=== PATIENT | female | born 1990 | race Caucasian/White ===

== ENCOUNTER → 2017-01-30 | Outpatient (CLI) | payer OTHER ==
[~2017-01-30] MED LIST: CRAN1CAP15 PO; PRENTAB26 PO; ZINC1CAP PO
== END | disposition home or self-care (01) ==
LOC: C.LABSPEC 17:26
PROVIDERS: ATTEND Physician Assistant
DX: N94.10 Unspecified dyspareunia (principal)

== ENCOUNTER → 2017-05-30 | Outpatient (CLI) | payer OTHER ==
[2017-05-30 16:22] LABS: URINE APPEARANCE CLEAR (CLEAR); URINE BILIRUBIN NEG (NEG); URINE COLOR YELLOW; URINE NITRITE NEG (NEG); URINE PH 6.5 (4.5-7.5); URINE SPECIFIC GRAVITY 1.017 (1.000-1.030); UROBILINOGEN NEG (NEG)
[2017-05-30 16:24] LABS: MANUAL MICROSCOPIC REQUIRED? NO; REVIEW REQ? NO
== END | disposition home or self-care (01) ==
LOC: C.LABSPEC 15:58
PROVIDERS: ATTEND Obstetrics & Gynecology
DX: Z34.91 Encounter for supervision of normal pregnancy, unspecified, first trimester (principal)

== ENCOUNTER → 2017-06-03 | Outpatient (CLI) | payer OTHER ==
[2017-06-03 16:34] LABS: BASO % 0.3 %; BASO ABS # 0.03 K/uL (0-0.2); COMPLETE YES; EOS % 0.9 %; HEMATOCRIT 37.2 % (37-47); IG% 0.3 %; LYMPH ABS # 2.09 K/uL (1.2-3.4); MEAN CELL VOLUME 86.3 fL (80-100); MEAN CORPUSCULAR HEMOGLOBIN 28.3 pg (25-34); MEAN CORPUSCULAR HGB CONC 32.8 g/dl (32-36); MEAN PLATELET VOLUME 10.1 fL (7.4-10.4); MONO % 5.3 %; NEUT % 74.2 %; PLATELET COUNT 308 K/uL (130-400); RED BLOOD COUNT 4.31 M/uL (4.2-5.4); WHITE BLOOD COUNT 11.02 K/uL (4.8-10.8)
[2017-06-05 15:19] LABS: CHLAMYDIA TRACH RNA*** NOT DETECTED (NOT DETECTED); GC (NEIS GONORRHOEAE)RNA** NOT DETECTED (NOT DETECTED)
== END | disposition home or self-care (01) ==
LOC: C.LAB1850 15:05
PROVIDERS: ATTEND Obstetrics & Gynecology
DX: Z34.91 Encounter for supervision of normal pregnancy, unspecified, first trimester (principal)

== ENCOUNTER → 2017-06-03 | Outpatient (CLI) | payer OTHER | END | disposition home or self-care (01) | LOC: C.PAPS 09:59 | PROVIDERS: ATTEND Obstetrics & Gynecology | DX: Z12.4 Encounter for screening for malignant neoplasm of cervix (principal) ==

== ENCOUNTER → 2017-07-22 | Outpatient (CLI) | payer OTHER ==
[2017-07-22 18:00] LABS: GTGD 50 Grams
== END | disposition home or self-care (01) ==
LOC: C.LAB1850 14:36
PROVIDERS: ATTEND Obstetrics & Gynecology
DX: Z34.92 Encounter for supervision of normal pregnancy, unspecified, second trimester (principal)

== ENCOUNTER → 2017-10-23 | Outpatient (CLI) | payer OTHER ==
[2017-10-23 15:34] LABS: HEMATOCRIT 34.2 % (37-47); HEMOGLOBIN 11.7 g/dL (12.0-16.0)
== END | disposition home or self-care (01) ==
LOC: C.LAB1850 14:26
PROVIDERS: ATTEND Obstetrics & Gynecology
DX: Z34.93 Encounter for supervision of normal pregnancy, unspecified, third trimester (principal)

== ENCOUNTER → 2017-12-11 | Outpatient (CLI) | payer OTHER | END | disposition home or self-care (01) | LOC: C.LABSPEC 15:51 | PROVIDERS: ATTEND Obstetrics & Gynecology | DX: Z34.83 Encounter for supervision of other normal pregnancy, third trimester (principal) ==

== ENCOUNTER 2022-01-12 21:35 | Inpatient (IN) ==
[2022-01-13] MEDS ORDERED: OXYTOCIN 30 UNITS/500 ML BAG IV PRN ×3 (01:39→09:41)
[2022-01-13] MEDS ORDERED: fentaNYL citrate 100 MCG/2 ML VIAL ONE (01:41)
[2022-01-13] MEDS ORDERED: ePHEDrine sulfate 50 MG/ML AMP ONE (01:41)
[2022-01-13] MEDS ORDERED: BUPIVACAINE 0.25% 30 ML VIAL ONE (01:41)
[2022-01-13] MEDS ORDERED: SODIUM CHLORIDE 0.9% INJ 10 ML VIAL ONE (01:41)
[2022-01-13] MEDS ORDERED: fentaNYL 2MCG/ML ROPIVACAINE 1.25MG/ML 100 ML BAG EPI ONE (01:42)
[2022-01-13] MEDS: LACTATED RINGER'S 1,000 ML IV PRN ×2 (01:45→02:37)
[2022-01-13 02:04] LABS: Hematocrit (blood only) 33.7 % (37-47); Hemoglobin 11.2 g/dL (12.0-16.0); Mean Corpuscular Hemoglobin 28.6 pg (25-34); Mean Corpuscular Hgb Conc 33.2 g/dL (32-36); Mean Platelet Volume 9.3 fL (7.4-10.4); Platelet Count 230 K/uL (130-400); RDW Coefficient of Variation 13.4 % (11.5-14.5); RDW Standard Deviation 42.2 fL (36.4-46.3); Red Blood Count 3.92 M/uL (4.2-5.4); White Blood Count 8.85 K/uL (4.8-10.8)
[2022-01-13] MEDS ORDERED: PROMETHAZINE HCL 6.25 MG in SODIUM CHLORIDE 0.9% 50 ML IV PRN (02:50)
[2022-01-13] MEDS ORDERED: fentaNYL 2MCG/ML ROPIVACAINE 1.25MG/ML 100 ML BAG EPI PRN (02:50)
[2022-01-13] MEDS ORDERED: diphenhydrAMINE 50 MG/ML VIAL IV PRN (02:50)
[2022-01-13] MEDS ORDERED: ePHEDrine sulfate 50 MG/ML AMP IV PRN (02:50)
[2022-01-13] MEDS ORDERED: NALOXONE HCL 0.4 MG/1 ML VIAL/CARP IV PRN (02:50)
[2022-01-13] MEDS ORDERED: NALOXONE HCL 1 MG in SODIUM CHLORIDE 0.9% 1000ML 1,000 ML IV PRN (02:50)
[2022-01-13] MEDS ORDERED: ONDANSETRON INJ 2 MG/ML 2 ML VIAL IV PRN (02:50)
[2022-01-13] MEDS ORDERED: NALBUPHINE HCL INJ 10 MG/ML AMP IV PRN (02:50)
--- NOTE | 2022-01-13 02:50 | Anesthesiology Consultation ---
Date of Service January 13, 2022 Assessment & Plan Chart Review Chart Review: Acceptable Risk for Surgery and Patient NOT seen in Pre Admission Testing Consults Requested none ASA ASA2 Proposed Anesthesia Anesthesia Type: Labor Epidural Risk / Benefits Reviewed With: PT / POA / Parent / Guardian, Accepts Plan and Informed Consent Obtained History Height/Weight Height: 5 ft 8 in Weight: 94.347 kg Allergies Allergy/AdvReac Type Severity Reaction Status Date / Time No Known Drug Allergies Allergy Mild None Verified 01/12/22 21:57 Medications Home Medications Medication Instructions Recorded Confirmed Last Taken cranberry extract 2 tab PO DAILY 05/26/19 01/12/22 01/11/22 zinc gluconate 50 mg tablet 50 mg PO DAILY tab 05/26/19 01/12/22 01/11/22 prenat.vits,josefina,vdt-vmgo-pvuje 1 tab PO DAILY 06/01/21 01/12/22 01/11/22 Vitamin D3 1 tab PO DAILY 08/16/21 01/12/22 01/12/22 magnesium 1 tab PO DAILY 08/16/21 01/12/22 01/12/22 ferrous sulfate 325 mg (65 mg 325 mg PO DAILY 11/20/21 01/12/22 01/11/22 iron) tablet Active Medications Generic Name Dose Route Start Last Admin Trade Name Freq PRN Reason Stop Dose Admin Lactated Ringer's 1,000 mls @ 125 mls/hr 01/13/22 01:39 01/13/22 02:37 Lr IV 01/15/22 01:38 125 mls/hr .Q8H PRN Administration L&D Protocol Protocol Past Medical History Medical History Fracture phalanges, hand Varicella Exercise / Class Metabolic Activity II 4-5 Yardwork/Stairs/Walk up hill Past Family History Family History Mother Asthma Grandmother (Paternal) Breast cancer Diabetes Grandfather (Maternal) Myocardial infarction Denies family history of Ovarian cancer Prostate cancer Colorectal cancer Past Surgical History Surgical History History of surgery Past Anesthesia History No Hx of Anesthesia Complications and No Family Hx of Anesthesia Complications History of PONV No Hx of PONV and No Hx of Motion Sickness Social History Smoking Status: Never smoker Hx Alcohol Use: Yes Alcohol type: wine Hx Substance Use: No substance use type: does not use Physical Exam Vital Signs Last Vital Signs Temp 36.8 C 01/13/22 01:55 Pulse 73 01/13/22 02:49 Resp 16 01/13/22 02:40 BP 88/52 L 01/13/22 02:49 Pulse Ox 98 01/13/22 02:45 ENMT Mouth: no dentition abnormality Thyromental Distance: > or= 3.5 Finger Breadths Mallampati Class: II Neck normal visual inspection Respiratory normal respiratory effort Auscultation: lungs clear to auscultation bilaterally Cardiovascular Rate/Rhythm: regular rate and regular rhythm Psychiatric Orientation: alert Testing Laboratory Results 01/13/22 01:48
--- NOTE | 2022-01-13 04:46 | History & Physical Report ---
Date of Service January 13, 2022 Assessment & Plan (1) Active labor at term: Plan: pt has been admitted. iv, labs reviewed. will need to begin pitocin since ctx have spaced, pt aware and agreeable. suspect srom earlier as with attempt at arom, could not palpate membranes and no obvious result. fhts categ 1. Admission and Anticipated Discharge Date Admission Date: January 13, 2022 History of Present Illness Chief Complaint: regular ctx Primary Care Provider: Bart Levy MD 31yo at 40wks ega presents to LD with above cc. She notes ctx were regular q2-3min and came to L&D for evaluation. She was only 1cm on arrival but then over 4hr waiting changed to 4cm and was admitted as she noted painful ctx. PNC uncomplicated. PNL rh pos, ri, GBS neg OBH: x 2 GYNH: nl paps. Allergies Allergy/AdvReac Type Severity Reaction Status Date / Time No Known Drug Allergies Allergy Mild None Verified 01/12/22 21:57 Home Medications Medication Instructions Recorded Confirmed Type cranberry extract 2 tab PO DAILY 05/26/19 01/12/22 History zinc gluconate 50 mg tablet 50 mg PO DAILY tab 05/26/19 01/12/22 History prenat.vits,josefina,wkj-qmls-lkwft 1 tab PO DAILY 06/01/21 01/12/22 History Vitamin D3 1 tab PO DAILY 08/16/21 01/12/22 History magnesium 1 tab PO DAILY 08/16/21 01/12/22 History ferrous sulfate 325 mg (65 mg 325 mg PO DAILY 11/20/21 01/12/22 History iron) tablet Patient History Medical History Fracture phalanges, hand Varicella Surgical History History of surgery Family History Mother Asthma Grandmother (Paternal) Breast cancer Diabetes Grandfather (Maternal) Myocardial infarction Denies family history of Ovarian cancer Prostate cancer Colorectal cancer Social History Smoking Status: Never smoker Second Hand Exposure: No; Hx Alcohol Use: Yes Alcohol type: wine Hx Substance Use: No Preferred Language: R[place] Visual Impairment: No Limitations Hearing Ability: Normal Scientific Affairs Manager Required: No Beliefs That Will Affect Care: None marital status: marital status details: Yunier Cordoba (30) [phone] Current Living Situation: Spouse Current Living Situation Comment: lives with spouse, 2 children, cats-spouse changing litter current occupational status: employed current occupation: daycare Other Information That Helps Us Care for You: No Feels Safe at Home: Yes Safety Concerns: Feels Safe At This Time Dental Care, Regularly: Yes Physical Activity Frequency: 3-4 Times per Week Assistive Devices: Contacts and Glasses Review of Systems as per Subjective / HPI Physical Exam Constitutional: WD/WN, vitals as above Respiratory: normal respiratory effort, lungs clear to auscultation Cardiovascular: Rate/Rhythm: regular rate and regular rhythm Gastrointestinal (Abdomen): soft gravid nt efw 7-8# Musculoskeletal: no edema nontender calves Neurologic: grossly normal Psychiatric: A+Ox3, euthymic affect Genitourinary: Manual OB Exam: + cervical dilation 5 cm, + cervical effacement 80% and + station -2 OB Exam Monitor Tracing: + external FHT monitor used, + external uterine monitor used (q6), + category I and + normal FHT variability Results & Data ([facility]) Vital Signs (Past 12 Hours) Vital Signs Temp Pulse Resp BP Pulse Ox 01/13/22 04:40 75 98 01/13/22 04:38 78 104/68 01/13/22 04:35 78 99 01/13/22 04:34 71 116/72 01/13/22 04:30 74 99 01/13/22 04:27 81 92/51 L 01/13/22 04:25 79 97 01/13/22 04:23 71 99/57 L 01/13/22 04:20 76 97 01/13/22 04:17 75 92/50 L 01/13/22 04:15 74 98 01/13/22 04:12 70 87/48 L 01/13/22 04:10 67 98 01/13/22 04:09 67 98/54 L 01/13/22 04:05 79 97 01/13/22 04:03 64 96/52 L 01/13/22 04:00 80 97 01/13/22 03:58 77 90/52 L 01/13/22 03:55 76 98 01/13/22 03:52 77 89/50 L 01/13/22 03:50 81 97 01/13/22 03:49 69 93/52 L 01/13/22 03:45 80 97 01/13/22 03:43 64 97/52 L 01/13/22 03:40 83 97 01/13/22 03:37 76 93/55 L 01/13/22 03:35 70 98 01/13/22 03:32 77 92/54 L 01/13/22 03:30 74 98 01/13/22 03:27 80 92/55 L 01/13/22 03:25 82 99 01/13/22 03:23 71 100/55 L 01/13/22 03:20 69 99 01/13/22 03:19 75 89/50 L 01/13/22 03:15 69 99 01/13/22 03:12 76 95/53 L 01/13/22 03:10 82 18 99 01/13/22 03:07 68 98/57 L 01/13/22 03:05 74 98 01/13/22 03:02 75 95/53 L 01/13/22 03:00 68 99 01/13/22 02:57 79 92/52 L 01/13/22 02:55 69 16 94/53 L 99 01/13/22 02:53 74 87/53 L 01/13/22 02:51 75 86/54 L 01/13/22 02:50 76 18 98 01/13/22 02:49 73 88/52 L 01/13/22 02:47 73 87/50 L 01/13/22 02:45 72 92/51 L 98 01/13/22 02:43 76 89/50 L 01/13/22 02:41 69 97/54 L 01/13/22 02:40 68 16 98 01/13/22 02:35 69 99 01/13/22 02:30 74 100 01/13/22 02:25 69 99 01/13/22 02:20 77 97 01/13/22 02:15 72 98 01/13/22 02:10 72 97 01/13/22 02:05 69 97 01/13/22 02:00 62 100 01/13/22 01:55 98.2 F 68 112/68 98 05/28/22 21:45 98.4 F 18 01/12/22 21:44 71 115/68 Coding Level of Care Code None Diagnoses Active labor at term
[2022-01-13] MEDS ORDERED: oxyCODONE/ACETAMINOPHEN 5mg/325mg TAB PO PRN (09:41)
[2022-01-13] MEDS ORDERED: DIPHTHERIA/TETANUS/PERTUSSIS 0.5 ML SYR/VIAL IM ONE (09:41)
[2022-01-13] MEDS ORDERED: BENZOCAINE 20% AER SPR 82.5 GM CAN EXT PRN (09:41)
[2022-01-13] MEDS ORDERED: HYDROCORTISONE ACETATE 25 MG SUPP PR PRN (09:41)
[2022-01-13] MEDS ORDERED: ACETAMINOPHEN 325 MG TAB PO PRN (09:41)
--- NOTE | 2022-01-13 09:43 | Delivery Summary ---
Vaginal Delivery Summary Date of Service January 13, 2022 Vaginal Delivery Summary and 3rd Degree LAC Pre-operative Diagnosis: at 40 1/7 labor Post-operative Diagnosis: same third degree laceration Procedure: epidural pitocin augmentation third degree laceration and repair EBL: 400cc Anesthesia: epidural Procedure: The patient presented to labor and delivery with early active labor. She progressed needing a small amount of pitocin to c/c/+2. The patient pushed for one contraction to deliver a viable female in buzz position. The rest of the infant was then delivered without difficulty. There was no nuchal cord. The baby was vigorous. The nose and mouth were bulb suctioned and the was placed in the maternal abdomen for drying and attention. Cord was clamped and cut at one minute of life. Cord blood and segment obtained. Placenta delivered spontaneous, intact with a three vessel cord. Cervix/sulci/rectum were intact. A third degree perineal laceration was repaired in the normal standard fashion--4 stitches of 2-0 vicryl in the sphincter, several deep 2-0 sutures to close the vaginal space. Hemostasis obtained with dilute pitocin and fundal massage. Apgars were 8/9. Mother and baby doing well at the end of the delivery. [facility] Vaginal Delivery Charge Delivery Type Details: and 3rd Degree LAC
[2022-01-13] MEDS ORDERED: ceFAZolin 1000MG 1,000 MG/7.5 ML SYR IV ONE (09:44)
--- NOTE | 2022-01-13 10:55 | Anesthesia Procedure Note ---
Date of Service January 13, 2022 Anesthesia Post Epidural Note Vital Signs Vital Signs: Temp Pulse Resp BP Pulse Ox 36.8 C 76 18 114/69 98 01/13/22 07:00 01/13/22 10:50 01/13/22 07:00 01/13/22 10:40 01/13/22 10:50 Pain Intensity Abdomen: Pain Intensity: 0 Notes Mental Status: alert / awake / arousable and participated in evaluation Nausea / Vomiting: adequately controlled Pain: adequately controlled Airway Patency, RR, SpO2: stable & adequate BP & HR: stable & adequate Hydration State: stable & adequate Neuraxial Anesthesia: was administered and sensory block is resolving Anesthetic Complications: no major complications apparent Epidural: Removed without complications and With tip intact
[2022-01-13] MEDS: IBUPROFEN 600 MG TAB PO PRN ×2 (11:59→16:12)
[2022-01-13] MEDS: DOCUSATE SODIUM 100 MG CAP PO SCH (20:13)
[2022-01-14] MEDS: IBUPROFEN 600 MG TAB PO PRN ×2 (00:27→07:33)
--- NOTE | 2022-01-14 06:12 | Obstetrical Progress Note ---
Date of Service <Brady Wright MD - Last Filed: 01/14/22 07:36> January 14, 2022 Assessment & Plan <Brady Wright MD - Last Filed: 01/14/22 07:36> (1) Vaginal delivery: 31 yo now PPD1 from at 40wk1 with 3rd degree perineal laceration, given Ancef. -Discharge home today -Vitals reviewed- HDS, afebrile -Blood type O+, GBS-, Rubella immune -Pain control with ibuprofen, acetaminophen PRN -Hgb 9.6, asymptomatc -F/u in 6 weeks with OB <Aysha Cedillo MD, FACOG - Last Filed: 01/14/22 07:50> (1) Vaginal delivery: Subjective <Brady Wright MD - Last Filed: 01/14/22 07:36> Ambulation: ambulating normally Voiding: no voiding problems Passing Gas:: Yes Diet Tolerance:: regular diet Lochia:: Small Feeding Type:: breast feeding Current Pain Level(1-10): 0 Pt doing well overall, no acute complaints or distress. Reports some soreness but states it is not painful. going well. Would like to go home today. Review of Systems Denies fever/chills. Denies dyspnea, cough. Denies chest pain. Denies breast pain or discharge. Denies dysuria. Denies headache. Denies back pain. Physical Exam <Brady Wright MD - Last Filed: 01/14/22 07:36> General: Alert, oriented, no acute distress Cardiac: Regular rate and rhythm, normal S1, S2. No murmurs appreciated. Respiratory: Clear to auscultation b/l with good air flow entry, symmetric chest rise and fall. No wheezes or crackles. No increased work of breathing or accessory muscle use Abdomen: Soft, nontender, nondistended. Fundus firm and palpable at 1.5 cm below umbilicus. No guarding or rebound. Skin: No rashes or lesions Extremities: Warm, dry, well-perfused with capillary refill <2s b/l. No lower extremity edema, erythema, swelling or calf tenderness b/l. Results & Data ([facility]) <Brady Wright MD - Last Filed: 01/14/22 07:36> Vital Signs (Past 12 Hours) Vital Signs Temp Pulse Resp BP Pulse Ox 01/14/22 04:24 36.5 C 54 L 18 101/60 98 01/14/22 00:35 36.4 C L 65 18 94/60 L 97 01/13/22 20:00 36.4 C L 71 18 97/62 L 98 <Aysha Cedillo MD, FACOG - Last Filed: 01/14/22 07:50> Co-Signing Physician Notes Resident Physician Supervision Note: I interviewed and examined the patient. Discussed with Dr. Wright and agree with findings and plan as documented in the note. Any exceptions or clarifications are listed here: Doing well. Sore bottom consistent with third degree. Discussed first BM. Call with any concerns of questions. Instructions given for d/c. Documented By: Aysha Cedillo MD, FACOG Resident Activity Tracking <Brady Wright MD - Last Filed: 01/14/22 07:36> Resident Involvement: Resident Care Provided Care Provided: OB Delivery
[2022-01-14 07:32] LABS: Hematocrit (blood only) 29.2 % (37-47); Hemoglobin 9.6 g/dL (12.0-16.0)
[2022-01-14] MEDS: DOCUSATE SODIUM 100 MG CAP PO SCH (07:33)
[2022-01-14] MEDS ORDERED: PRENATAL VITAMIN 1 TAB PO SCH (08:00)
[2022-01-14] MEDS ORDERED: bisacodyL 5 MG TABEC PO SCH (20:00)
== END 2022-01-14 11:15 | disposition home or self-care (01) | DRG 768 ==
LOC: OPB 21:35 → 4S1 21:41 → 4E2 01-13 12:44

== ENCOUNTER 2024-04-04 19:52 | Inpatient (IN) ==
[2024-04-04] MEDS ORDERED: OXYTOCIN 30 UNITS/NSS 30 UNITS/500 ML BAG IV PRN (20:36)
[2024-04-04] MEDS ORDERED: CALCIUM CARBONATE 500 MG CHEWABLE TAB PO PRN (20:36)
[2024-04-04] MEDS ORDERED: LIDOCAINE 1% LOCAL 20 ML VIAL INFIL PRN (20:36)
[2024-04-04] MEDS: LACTATED RINGER'S 1,000 ML IV PRN (20:37)
--- NOTE | 2024-04-04 20:44 | History & Physical Report ---
Date of Service April 04, 2024 Assessment & Plan (1) Normal labor: Plan admit, iv, labs, will see how arom helps labor pattern. epidural when desires. History of Present Illness Chief Complaint: contractions. Primary Care Provider: Bart Levy MD 33yo at 39+wks ega presents to LD with above cc. Patient noting ctx q2-3min. No rom. No vb. +FM. PNC uncomplicated. Prior LGA, last u/s efw 84% PNL rh pos, ri, gbs neg OBH: x 3 GYNH: nl paps no stds Allergies Allergy/AdvReac Type Severity Reaction Status Date / Time No Known Drug Allergies Allergy Mild None Verified 03/29/24 13:04 Home Medications Medication Instructions Recorded Confirmed Type prenat.vits,josefina,dix-vxqx-kihdg 1 tab PO DAILY 06/01/21 04/04/24 History magnesium 500 mg tablet 1 mg PO DAILY 04/04/24 04/04/24 History Patient History Medical History Fracture phalanges, hand Varicella Surgical History History of surgery Family History Mother Asthma Grandmother (Paternal) Breast cancer Diabetes Grandfather (Maternal) Myocardial infarction Denies family history of Ovarian cancer Prostate cancer Colorectal cancer Social History Smoking Status: Never smoker Second Hand Exposure: No; Do You Dip or Chew Tobacco: No; Hx Alcohol Use: No Hx Substance Use: No Preferred Language: Tanzanian Visual Impairment: No Limitations Hearing Ability: Normal Geography Instructor Required: No Beliefs That Will Affect Care: None marital status: marital status details: Yunier Cordoba (32) [phone] Current Living Situation: Family Current Living Situation Comment: lives with spouse, 3 children, cats-spouse changing litter current occupational status: unemployed current occupation: daycare Other Information That Helps Us Care for You: No Feels Safe at Home: Yes Safety Concerns: Feels Safe At This Time Dental Care, Regularly: Yes Physical Activity Frequency: 3-4 Times per Week Assistive Devices: None Review of Systems as per Subjective / HPI Physical Exam Constitutional: WD/WN, vitals as above Respiratory: normal respiratory effort, lungs clear to auscultation Cardiovascular: Rate/Rhythm: regular rate and regular rhythm Gastrointestinal (Abdomen): soft gravid nt efw 8-9# Musculoskeletal: no edema nontender calves Neurologic: grossly normal Psychiatric: A+Ox3, euthymic affect Genitourinary: Manual OB Exam: + cervical dilation 3 cm, + cervical effacement 80%, + station -2 and + amniotic fluid (arom ) clear OB Exam Monitor Tracing: + external FHT monitor used, + external uterine monitor used, + category I and + normal FHT variability Results & Data Vital Signs (Past 12 Hours) Vital Signs Temp Pulse Resp BP 04/04/24 20:05 98.4 F 18 04/04/24 20:04 70 121/73 Coding Level of Care Code None Diagnoses Normal labor O80; Z37.9
[2024-04-04] MEDS ORDERED: NALBUPHINE HCL 5 MG in SYRINGE 0 ML IV PRN (21:14)
[2024-04-04] MEDS ORDERED: SODIUM CHLORIDE 0.9% PF INJ 10 ML VIAL EPI PRN (21:14)
[2024-04-04] MEDS ORDERED: NALOXONE HCL 1 MG in SODIUM CHLORIDE 0.9% 1,000 ML IV PRN (21:14)
[2024-04-04] MEDS ORDERED: diphenhydrAMINE 50 MG/ML VIAL IV PRN (21:14)
[2024-04-04] MEDS ORDERED: fentANYL 2 MCG/ML BUPIVacaine 0.125%-NSS 100ML BAG EPI PRN (21:14)
[2024-04-04] MEDS ORDERED: LIDOCAINE 2% MPF LOCAL 5 ML VIAL EPI PRN (21:14)
[2024-04-04] MEDS ORDERED: NALOXONE HCL 0.4 MG/1 ML VIAL/CARP IV PRN (21:14)
[2024-04-04] MEDS ORDERED: fentaNYL citrate PF 100 MCG/2 ML VIAL EPI PRN (21:14)
[2024-04-04] MEDS ORDERED: ePHEDrine sulfate 50 MG/ML AMP IV PRN (21:14)
[2024-04-04] MEDS ORDERED: ROPIVACAINE 0.5% PF 5 MG/ML 20 ML VIAL EPI PRN (21:14)
[2024-04-04] MEDS ORDERED: BUPIVACAINE 0.25% PF 30 ML VIAL EPI PRN (21:14)
--- NOTE | 2024-04-04 21:17 | Anesthesiology Consultation ---
Date of Service April 04, 2024 Assessment & Plan (1) Encounter for pre-operative examination: Chart Review Chart Review: Patient NOT seen in Pre Admission Testing and Acceptable Risk for Labor Epidural Consults Requested none History Height/Weight Height: 5 ft 8 in Weight: 90.265 kg Allergies Allergy/AdvReac Type Severity Reaction Status Date / Time No Known Drug Allergies Allergy Mild None Verified 03/29/24 13:04 Medications Home Medications Medication Instructions Recorded Confirmed Last Taken prenat.vits,josefina,ehr-ugpp-vybcu 1 tab PO DAILY 06/01/21 04/04/24 04/04/24 09:00 magnesium 500 mg tablet 1 mg PO DAILY 04/04/24 04/04/24 04/04/24 09:00 Past Medical History Medical History (Updated 04/04/24 @ 21:16 by Sanchez Carson MD) Encounter for pre-operative examination Vaginal delivery Varicella Fracture phalanges, hand LT- 2nd finger middle phalange- required pinning- healed fine Exercise / Class Metabolic Activity II 4-5 Yardwork/Stairs/Walk up hill Past Family History Family History Mother Asthma Grandmother (Paternal) Breast cancer Diabetes Grandfather (Maternal) Myocardial infarction Denies family history of Ovarian cancer Prostate cancer Colorectal cancer Past Surgical History Surgical History History of surgery pins placed in left 2nd finger- middle phalange Past Anesthesia History No Hx of Anesthesia Complications and No Family Hx of Anesthesia Complications Social History Smoking Status: Never smoker Do You Dip or Chew Tobacco: No Hx Alcohol Use: No Alcohol type: wine Hx Substance Use: No substance use type: does not use Physical Exam Vital Signs Last Vital Signs Temp 36.9 C 04/04/24 20:05 Pulse 70 04/04/24 20:04 Resp 18 04/04/24 20:05 BP 121/73 04/04/24 20:04
[2024-04-04] MEDS: LIDOCAINE 2%/EPINEPHRINE 1:200,000 20 ML PF ONE (21:43)
[2024-04-04] MEDS: fentANYL 2 MCG/ML BUPIVacaine 0.125%-NSS 100ML BAG ONE (21:43)
[2024-04-04] MEDS: BUPIVACAINE 0.25% PF 30 ML VIAL ONE (21:43)
[2024-04-04 21:52] LABS: Hematocrit (blood only) 35.9 % (37.0-47.0); Hemoglobin 11.8 g/dl (12.0-16.0); Mean Corpuscular Hemoglobin 29.2 pg (25.0-34.0); Mean Corpuscular Hgb Conc 32.9 g/dL (32.0-36.0); Mean Corpuscular Volume 88.9 fL (80.0-100.0); Mean Platelet Volume 9.9 fL (9.4-12.4); Platelet Count 214 K/uL (130-400); RDW Coefficient of Variation 13.4 % (11.5-14.5); RDW Standard Deviation 43.7 fL (36.4-46.3); Red Blood Count 4.04 M/uL (4.20-5.40); White Blood Count 7.55 K/ul (4.8-10.8)
[2024-04-04] MEDS: fentaNYL citrate PF 100 MCG/2 ML VIAL ONE (22:02)
[2024-04-04] MEDS: fentaNYL citrate PF 100 MCG/2 ML VIAL EPI STA (22:03)
[2024-04-04] MEDS: LIDOCAINE 2%/EPINEPHRINE 1:200,000 20 ML PF EPI STA (22:03)
[2024-04-04] MEDS: SODIUM CHLORIDE 0.9% PF INJ 10 ML VIAL ONE (22:03)
[2024-04-04] MEDS: SODIUM CHLORIDE 0.9% PF INJ 10 ML VIAL EPI STA (22:03)
[2024-04-04] MEDS: BUPIVACAINE 0.25% PF 30 ML VIAL EPI STA (22:03)
[2024-04-04] MEDS: OXYTOCIN 30 UNITS/NSS 30 UNITS/500 ML BAG IV PRN (22:43)
--- NOTE | 2024-04-04 22:54 | Delivery Summary ---
Vaginal Delivery Summary Date of Service April 04, 2024 Vaginal Delivery Summary and 2nd Degree LAC The patient dilated to complete and pushed to deliver a viable male infant Apgars 9 and 10 via over 2nd degree perineal laceration. Mouth and nose bulb suctioned at perineum. Shoulders and body delivered with ease. Infant was vigorous and crying at . Cord clamped at 36 seconds of life and infant to maternal abdomen where the cord was then doubly clamped and cut. Placenta delivered spontaneously and intact, three-vessel cord. Hemostasis achieved with dilute pitocin and uterine massage and drainage of the bladder for approximately 350 cc under sterile conditions. Laceration repaired in routine fashion with 3-0 vicryl. Bleeding site inner right labia noted and stitched with interrupted suture of 3-0 vicryl, hemostasis excellent. Cervix and sulci intact. QBL 228 cc. Mother and baby stable in recovery. [facility] Vaginal Delivery Charge Delivery Type Details: and 2nd Degree LAC
--- NOTE | 2024-04-04 23:20 | Anesthesia Procedure Note ---
Date of Service April 04, 2024 Anesthesia Post Epidural Note Vital Signs Vital Signs: Temp Pulse Resp BP Pulse Ox 36.9 C 67 18 110/59 L 97 04/04/24 20:05 04/04/24 23:11 04/04/24 20:05 04/04/24 23:11 04/04/24 22:38 Pain Intensity Abdomen: Pain Intensity: 8 Notes Mental Status: alert / awake / arousable and participated in evaluation Patient Amnestic to Procedure: No Nausea / Vomiting: adequately controlled Pain: adequately controlled Airway Patency, RR, SpO2: stable & adequate BP & HR: stable & adequate Hydration State: stable & adequate Neuraxial Anesthesia: was administered and sensory block is resolving Anesthetic Complications: no major complications apparent and Pt Satisfied with anesthetic care Epidural: Removed without complications and With tip intact
[2024-04-04] MEDS ORDERED: HYDROCORTISONE ACETATE 25 MG SUPP PR PRN (23:41)
[2024-04-04] MEDS ORDERED: oxyCODONE/ACETAMINOPHEN 5mg/325mg TAB PO PRN (23:41)
[2024-04-04] MEDS ORDERED: ACETAMINOPHEN 325 MG TAB PO PRN (23:41)
[2024-04-04] MEDS: ePHEDrine sulfate 50 MG/ML AMP ONE (23:57)
[2024-04-05] MEDS: DIPHTHER/TETAN/PERTUS Vaccine (Tdap, Adol/Adult) 0.5mL IM ONE (00:30)
[2024-04-05] MEDS: BENZOCAINE 20% SPRY 85 APPLN/85 GM CAN EXT PRN (00:40)
[2024-04-05] MEDS: IBUPROFEN 600 MG TAB PO PRN (00:41)
[2024-04-05] MEDS: OXYTOCIN 20 UNITS/LR 1,002 ML IV SCH (00:41)
--- NOTE | 2024-04-05 06:23 | Obstetrical Progress Note ---
Date of Service April 05, 2024 Assessment & Plan (1) care and examination: Plan: PPD#1: Stable, no acute events overnight Continue routine care, ambulation, diet as tolerated Rh+, gbs -, ri Admission and Anticipated Discharge Date Admission Date: April 04, 2024 Supervising Physician Co-Signing Physician Notes Resident Physician Supervision Note: I was present with Dr. Bee during the history and exam. I discussed the case with the resident and agree with the findings and plan as documented in the note. Any exceptions or clarifications are listed here: stable, routine care. doing well. eating, voiding, ambulating. abd soft ff 1down nt, nt calves. ppd#1 s/p . doing well routine care. instructions reviewed in case of dc later. breast/rhpos/ri. Documented By: Sylvia Beebe MD, FACOG Subjective Erma is a 33 y/o female who is PPD#1 following full-term . Slight abdominal cramping, discomfort 3/10 Is voiding Did tolerate meals overnight Did ambulate on own. Currently breast feeding. Review of Systems 2 Constitutional: no fever, no chills and no sweats Respiratory: no dyspnea Cardiovascular: no chest pain, no palpitations and no calf pain Genitourinary: no dysuria Neurologic: no headache(s) Physical Exam 2 Physical Exam: General: Alert, oriented. No acute distress. Cardiac: Regular rate and rhythm, no murmurs, rubs, or gallops. Respiratory: Clear to auscultation bilaterally, no wheezes/rales/rhonchi. No increased work of breathing. Symmetrical chest rise. No respiratory distress. Abdomen: Soft, nontender, nondistended. Bowel sounds present. Uterus: Uterine fundus firm, palpable 1 cm below the umbilicus. Lower extremities: No lower extremity edema or swelling. No deep calf pain. Results & Data Vital Signs (Past 12 Hours) Vital Signs Temp Pulse Pulse Resp BP BP Pulse Ox 04/05/24 05:55 36.9 C 57 L 18 113/69 04/05/24 01:45 37.0 C 56 L 18 109/65 04/05/24 01:25 56 L 109/65 04/05/24 01:10 66 108/65 04/05/24 00:58 51 L 107/60 04/05/24 00:56 59 L 83/47 L 04/05/24 00:40 66 110/68 04/05/24 00:25 69 110/70 04/05/24 00:11 62 108/65 04/04/24 23:56 63 106/60 04/04/24 23:41 60 103/55 L 04/04/24 23:26 65 115/76 04/04/24 23:11 67 110/59 L 04/04/24 22:56 78 120/59 L 04/04/24 22:49 78 158/60 H 04/04/24 22:38 81 97 04/04/24 22:33 75 97 04/04/24 22:28 78 97 04/04/24 22:26 75 124/76 04/04/24 22:23 85 97 04/04/24 22:18 77 97 04/04/24 22:13 75 97 04/04/24 22:08 69 103/69 98 04/04/24 22:05 78 100/66 04/04/24 22:03 78 97 04/04/24 22:02 82 107/66 04/04/24 21:59 72 103/64 04/04/24 21:58 78 97 04/04/24 21:56 84 101/65 04/04/24 21:53 79 109/70 99 04/04/24 21:50 75 112/67 04/04/24 21:48 99 04/04/24 21:48 72 04/04/24 21:48 77 120/72 04/04/24 21:44 65 112/60 04/04/24 21:43 71 100 04/04/24 21:41 63 116/62 04/04/24 21:38 100 04/04/24 21:38 70 04/04/24 21:38 68 113/65 04/04/24 21:35 72 112/74 04/04/24 21:33 69 100 04/04/24 21:28 70 115/79 100 04/04/24 21:25 76 113/75 04/04/24 21:23 68 100 04/04/24 20:05 36.9 C 18 04/04/24 20:04 70 121/73 Laboratory Results 04/04/24 20:49 Resident Activity Tracking Resident Involvement: Resident Care Provided Care Provided: Adult Hospital Medicine
[2024-04-05] MEDS: DOCUSATE SODIUM 100 MG CAP PO SCH (08:15)
[2024-04-05] MEDS: MAGNESIUM OXIDE 400 MG TAB PO SCH (08:15)
[2024-04-05] MEDS: PRENATAL VITAMIN 1 TAB PO SCH (08:15)
[2024-04-05 15:36] VITALS: RESP 16
[2024-04-05 19:14] VITALS: BP 111/74; PULSE 63; TEMP 97.3; O2SAT 97
[2024-04-05] MEDS: bisacodyL 5 MG TABEC PO SCH (20:05)
== END 2024-04-05 23:52 | disposition home or self-care (01) | DRG 807 ==
LOC: OPB 19:52 → 4S1 19:54 → 4E2 04-05 01:45